=== PATIENT | male | born 1985 | race American Indian/Alaskan Native ===

== ENCOUNTER 2017-12-15 21:26 | Emergency (ER) | payer SELFPAY ==
[2017-12-15 23:39] VITALS: BMI 35.1
[2017-12-15 23:42] VITALS: RESP 16; TEMP 98.2; O2SAT 98
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
[2017-12-16 02:38] VITALS: BP 150/88; PULSE 85
--- NOTE | 2017-12-16 09:51 | RAD ---
Date of service: 12/16/2017 PROCEDURE: Right Knee Radiographs. HISTORY: knee pain COMPARISON: None. FINDINGS: BONES: Normal. No fracture. JOINTS: Mild lateral osteoarthritis. Medial and patellofemoral compartments are preserved. JOINT EFFUSION: None. OTHER FINDINGS: None. IMPRESSION: Mild lateral osteoarthritis. Otherwise unremarkable.
== END 2017-12-16 03:00 | disposition home or self-care (01) ==
LOC: ED 21:26
DX: M25.561 Pain in right knee (principal)
CPT/HCPCS: 73562; 96372; 99284; J1885

== ENCOUNTER 2018-06-18 15:19 | Emergency (ER) | payer OTHER ==
[2018-06-18 15:22] VITALS: BMI 33.7
[2018-06-18] MEDS ORDERED: Sodium Chloride 0.9% 1,000 ML IV STA (15:36)
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
[2018-06-18 16:05] LABS: BASO # 0.02 K/mm3 (0.0-2.0); BASO % 0.3 % (0.0-3.0); EOS % 0.5 % (1.5-5.0); HEMOGLOBIN 15.7 g/dL (14.0-18.0); LYMPH # 2.9 (1.2-3.4); LYMPH % 46.1 % (22.0-35.0); MEAN CELL VOLUME 79.2 fl (80.0-105.0); MEAN CORPUSCULAR HEMOGLOBIN 28.6 pg (25.0-35.0); MEAN CORPUSCULAR HGB CONC 36.2 g/dl (31.0-37.0); MEAN PLATELET VOLUME 9.3 fl (7.0-11.0); MONO # 0.4 (0.1-0.6); MONO % 6.9 % (1.0-6.0); RBC 5.48 10^6/uL (3.5-6.1); RED CELL DISTRIBUTION WIDTH 13.8 % (11.5-14.5); WHITE BLOOD COUNT 6.2 10^3/uL (4.5-11.0)
[2018-06-18 16:08] LABS: URINE APPEARANCE CLEAR (CLEAR); URINE BILIRUBIN NEGATIVE (NEGATIVE); URINE BLOOD TRACE-INTACT (NEGATIVE); URINE COLOR YELLOW (YELLOW); URINE GLUCOSE (UA) NEGATIVE (NEGATIVE); URINE LEUKOCYTE ESTERASE NEGATIVE Leu/uL (NEGATIVE); URINE PROTEIN NEGATIVE mg/dL (<30 mg/dL); URINE UROBILINOGEN 0.2 E.U./dL (<1 E.U./dL)
[2018-06-18 16:14] LABS: ALB/GLOB RATIO 1.2 (1.1-1.8); ALBUMIN 5.1 g/dL (3.0-4.8); ALT/SGPT 32 U/L (7-56); AST/SGOT 60 U/L (17-59); BLOOD UREA NITROGEN 17 mg/dL (7-21); CALCIUM 9.8 mg/dL (8.4-10.5); GFR NON-AFRICAN AMERICAN > 60; LIPASE 139 U/L (23-300)
--- NOTE | 2018-06-18 17:28 | US ---
Date of service: 06/18/2018 HISTORY: epigastric abd pain COMPARISON: None. TECHNIQUE: Grayscale imaging was performed. FINDINGS: LIVER: Measures 15.3 cm. There is diffuse increased echogenicity of the liver parenchyma. No mass. No intrahepatic bile duct dilatation. GALLBLADDER: There are no gallstones, wall thickening or pericholecystic fluid. The sonographic Olson's sign is negative. COMMON BILE DUCT: Measures 3.2 mm. No stones. No dilatation. PANCREAS: Normal in size and echotexture. No mass. No ductal dilatation. RIGHT KIDNEY: Measures 11.3cm. Normal echogenicity. No calculus, mass, or hydronephrosis. LEFT KIDNEY: Measures 11.0cm. Normal echogenicity. No calculus, mass, or hydronephrosis. SPLEEN: Normal in size and contour. No mass. AORTA: No aneurysmal dilatation. IVC: Unremarkable. OTHER FINDINGS: None. IMPRESSION: Fatty liver. No cholelithiasis or biliary dilatation.
[2018-06-18 18:01] VITALS: BP 127/63; PULSE 70; RESP 16; TEMP 97.9; O2SAT 99
== END 2018-06-18 17:45 | disposition home or self-care (01) ==
LOC: ED 15:19
DX: K29.70 Gastritis, unspecified, without bleeding (principal); K76.0 Fatty (change of) liver, not elsewhere classified; F17.210 Nicotine dependence, cigarettes, uncomplicated
CPT/HCPCS: 76700; 80053; 81001; 83690; 85025; 96361; 96374; 96375; 99283; J2405; J7030